=== PATIENT | female | born 1960 | race Caucasian/White ===

== ENCOUNTER 2021-04-29 09:59 | Outpatient (RCR) | payer BC, SELFPAY ==
--- NOTE | 2021-04-29 10:58 | PTOPEVAL ---
Thank you for referring Amanda Coello to [facility].? The patient is scheduled to be seen for therapy? ____x/week for ___ weeks. Please review, sign, date and return this plan of care NOEL. I agree with and certify that the following plan of care is medically necessary. Referring Physician Date Admitting Provider: Attending Provider: JEREMÍAS WINTERS Referring Provider: EMANUEL Outpatient Evaluation Start: 04/29/21 10:04 Freq: Status: Active Protocol: Document 04/29/21 10:05 ACR (Rec: 04/29/21 10:57 ACR [id number]) Therapy Assessment Status Assessment Status Assessment Status Evaluation Evaluation Information Problem Diagnosis DJD Onset 04/15/21 Subjective Information Patient states that she was Query Text:As Reported By Patient/ just on a road trip for 16 Family days. She states that when she would stop and stretch she would feel something different in the mid thoracic region. When she got home she states the pain got worse so she went to the doctor and got an X- rays which showed some arthitis. The patient states that walking is okay, but her feet bother her more than the back. Patient states that she has the most difficulty with performing daily activities without an increase of pain by the end of the day. She states that she has difficulty with steps as well. She states that since the pandemic she has been pretty sedentary and has gained weight and thinks it could have caused some of her issues. She states that she has had one episode of some pins and needles sensation down both legs after standing for 20 minutes. Prior Level of Function Activity Level (Last 3 Months) Occupation retail Hand Dominance Right Activity of Daily Living Ability Independent Indoor/Home Mobility Independent Community Mobility Independent Stairs Ability Independent Functional Cognition (Planning, Shopping Independent , Taking Medications) Cooking Yes
== END 2021-04-29 10:27 | disposition home or self-care (01) ==
LOC: CHSPT 09:59
DX: M19.90 Unspecified osteoarthritis, unspecified site (principal)
CPT/HCPCS: 97110; 97161

== ENCOUNTER 2022-09-21 13:54 | Outpatient (CLI) | payer BC, SELFPAY ==
--- NOTE | ~2022-09-21 | MM_ITS ---
EXAMINATION: MM screening octavia BI w jess HISTORY: Screening mammogram TECHNIQUE: Craniocaudal and mediolateral oblique 3-D tomosynthesis images were obtained and synthetic 2-D images were generated. CAD analysis was submitted and interpreted. COMPARISON: No prior mammogram is available for comparison at this institution. BREAST PARENCHYMAL COMPOSITION: There are scattered areas of fibroglandular density. FINDINGS: There is no evidence of suspicious mass, calcification, or architectural distortion to sugg est malignancy in either breast. There has been no suspicious interval change. IMPRESSION: 1. No mammographic evidence of malignancy. 2. Recommend routine screening mammography in one year. BI-RADS Category 1: Negative Reviewed, dictated and finalized at location A.
--- NOTE | ~2022-09-21 | DEXA_ITS ---
Bone Density Report Name: CARLOS A PIZARRO Age: 62 Sex: Female Ethnicity: White Date of : 1960 Indication: postmenopausal; screening for osteoporosis; parental hip fracture; height loss; Referring Provider: Domenic Etienne Study: Bone densitometry was performed. Exam Date: September 21, 2022 Accession number: [id number] Bone Density: Region BMD T-score Z-score Classification AP Spine(L1-L4) 0.750 -2.7 -1.0 Osteoporosis Femoral Neck (Left) 0.604 -2.2 -0.7 Osteopenia Total Hip (Left) 0.756 -1.5 -0.3 Osteopenia Femoral Neck (Right) 0.574 -2.5 -1.0 Osteoporosis Total Hip (Right) 0.721 -1.8 -0.6 Osteopenia Femoral Neck Mean 0.589 -2.3 -0.9 Osteopenia Total Hip Mean 0.738 -1.7 -0.5 Osteopenia World Health Organization criteria for BMD impression classify patients as: Normal (T-score at or above -1.0), Osteopenia (T-score between -1.0 and -2.5), or Osteoporosis (T-score at or below -2.5). 10-year Fracture Risk: FRAX not reported because: Some T-score for Spine Total or Hip Total or Femoral Neck at or below -2.5 Clinical Information Provided by Patient: Parent has had a hip fracture Has used the following medications: Vitamin D, Calcium, multivit Patient maximum height was 70 Menopause Age: 51 No regular weight bearing exercise Drinks caffeinated beverages Onset of menses at age 9 Number of children 4 Impression: The patient has osteoporosis, based on the Total Spine T-score. The patient has risk factors, including: parental hip fracture. Discussion: INCREASED RISK OF FRACTURE. BONE DENSITY IS UNDESIRABLY LOW AT ONE OR MORE SKELETAL SITES, CONSISTENT WITH POSTMENOPAUSAL OSTEOPOROSIS. This patient's lowest T-score meets the World Health Organization's (WHO) criteria for osteoporosis at one or more sites (T-score -2.5 or below). In untreated patients, the risk of osteoporotic fracture increases approximately two-fold for each 1.0 SD decrease in T-score. Low bone density is not the only risk factor for fracture; also consider factors such as patient's age, frailty or poor health, risk of falling, risk of injury, previous osteoporotic fracture, family history of osteoporosis, cigarette smoking, low body weight, etc. Not everyone with low bone mineral density has osteoporosis; osteomalacia and other metabolic bone disorders should also be considered. Patients who have osteoporosis should be evaluated for specific diseases and conditions (secondary causes) that may cause or contribute to bone loss. The [place] Association of Clinical Endocrinologists (AACE) and National Osteoporosis Foundation (NOF) recommend pharmacologic intervention for all postmenopausal women whose T-score is in this range. The patient should follow a healthful lifestyle (good nutrition with adequate calcium and vitamin D,
== END 2022-09-21 13:55 | disposition home or self-care (01) ==
LOC: CHSIMG 13:57
PROVIDERS: PCP Internal Medicine; Visit Provider Internal Medicine
DX: Z12.31 Encounter for screening mammogram for malignant neoplasm of breast (principal); Z78.0 Asymptomatic menopausal state; M85.89 Other specified disorders of bone density and structure, multiple sites; M81.0 Age-related osteoporosis without current pathological fracture
CPT/HCPCS: 77063; 77067; 77080

== ENCOUNTER 2023-04-01 10:30 | Outpatient (CLI) | payer BC, SELFPAY ==
--- NOTE | ~2023-04-01 | XR_ITS ---
EXAMINATION: XR chest 2V DATE: 04/01/2023 10:50 INDICATION: Posterior chest pain TECHNIQUE: PA and lateral views of the chest are obtained. COMPARISON: None available FINDINGS: The lungs are free of acute opacities. No pleural effusion or pneumothorax. The cardiomedia stinal silhouette is normal. There is focal kyphosis and anterior wedging of an upper thoracic verteb ral body, consistent with compression or burst fracture. There is a partially imaged sclerotic lesion of the proximal right humerus. IMPRESSION: 1. Focal kyphosis and anterior wedging of an upper thoracic vertebral body likely reflecting age-inde terminate compression or burst fracture. Consider further evaluation with CT or MRI. 2. Partially imaged sclerotic lesion of the proximal right humerus. Dedicated right shoulder radiogra phs are recommended. Reviewed, dictated and finalized at location L. IMPRESSION: 1. Focal kyphosis and anterior wedging of an upper thoracic vertebral body like ly reflecting age-indeterminate compression or burst fracture. Consider further evaluation with CT or MRI. 2. Partially imaged sclerotic lesion of the proximal right humerus. Dedicated r ight shoulder radiographs are recommended.
== END 2023-04-01 10:31 | disposition home or self-care (01) ==
LOC: CHSIMG 10:34
PROVIDERS: PCP Internal Medicine; Visit Provider Internal Medicine
DX: R07.9 Chest pain, unspecified (principal); M40.294 Other kyphosis, thoracic region
CPT/HCPCS: 71046

== ENCOUNTER 2023-04-02 09:13 | Outpatient (CLI) | payer BC, SELFPAY ==
--- NOTE | ~2023-04-02 | XR_ITS ---
Right Humerus Technique: AP and lateral views were obtained. Clinical History: Sclerotic lesion Findings: No fracture or dislocation is seen. There is a 5.0 x 3.6 cm sclerotic lesion in the proxima l humeral metaphyseal region, with irregular borders. Appearance suggests chondroid lesion. No perios teal reaction or lytic component evident. Visualized joint spaces are grossly preserved. Soft tissues are unremarkable. Impression: 5.0 x 3.6 cm proximal humeral metaphyseal lesion, suggestive of chondroid lesion, likely enchondroma. Reviewed, dictated and finalized at location M. Impression: 5.0 x 3.6 cm proximal humeral metaphyseal lesion, suggestive of chondroid lesio n, likely enchondroma.
== END 2023-04-02 09:14 | disposition home or self-care (01) ==
LOC: CHSIMG 09:16
PROVIDERS: PCP Internal Medicine; Visit Provider Internal Medicine
DX: M89.9 Disorder of bone, unspecified (principal); M75.91 Shoulder lesion, unspecified, right shoulder
CPT/HCPCS: 73060

== ENCOUNTER 2023-04-08 06:57 | Outpatient (CLI) | payer BC, SELFPAY ==
--- NOTE | ~2023-04-08 | MR_ITS ---
MRI of the thoracic spine Clinical History: Back pain Technique: Axial T2-weighted and gradient images, and sagittal T1-weighted, T2-weighted, and STIR tomi ges were acquired. Findings: There is an element of kyphoscoliosis of the thoracic spine, but no acute fracture or sublu xation seen. No focal bone marrow signal abnormality identified. There is mild disc bulge at T8-T9. No spinal canal stenosis or cord compression seen at any thoracic level. No abnormal signal seen in the spinal cord itself. Paravertebral soft tissues are unremarkable . Impression: Kyphoscoliosis. Minimal disc bulge at T8-T9. Reviewed, dictated and finalized at location M. Impression: Kyphoscoliosis. Minimal disc bulge at T8-T9.
== END 2023-04-08 06:58 | disposition home or self-care (01) ==
LOC: CHSIMG 06:58
PROVIDERS: PCP Internal Medicine; Visit Provider Internal Medicine
DX: M41.9 Scoliosis, unspecified (principal); M51.34 Other intervertebral disc degeneration, thoracic region; S22.000A Wedge compression fracture of unspecified thoracic vertebra, initial encounter for closed fracture
CPT/HCPCS: 72146

== ENCOUNTER 2023-07-08 07:05 | Outpatient (CLI) | payer MEDICARE, SELFPAY ==
--- NOTE | ~2023-07-08 | MR_ITS ---
EXAMINATION: MR humerus RT wo/w con DATE: 07/08/2023 08:16 INDICATION: Proximal right humeral chondral lesion TECHNIQUE: Magnetic resonance imaging (MRI) of the right humerus was performed without intravenous co ntrast. A marker was placed over the mass. Sequences included axial, sagittal and coronal T1-weighte d FSE and fluid sensitive FSE STIR, axial T1-weighted FS FSE and postcontrast axial, sagittal and cor onal T1-weighted FS FSE. COMPARISON: Right humeral radiographs dated 04/02/2023 FINDINGS: Region of low signal in the proximal metaphyseal region of the right humerus corresponding to the rin g and arc-like sclerotic chondroid matrix evident on the prior radiographs. At the periphery of the r egion of sclerosis and a few small globular regions of increased T2 signal with thin peripheral rim o f enhancement is also typical of enchondroma. No evident cortical disruption on the prior radiographs were enhancing extraosseous component of the lesion on the current MRI to suggest an aggressive ench ondroma or pneumonia transformation. No other abnormal bone lesions identified. There is moderate ost eoarthritis at the right acromioclavicular joint. Right glenohumeral joint space appears relatively p reserved with no joint effusion. No pathologically enlarged right axillary lymphadenopathy. The muscu lature and neurovascular structures in the visualized right upper arm are unremarkable. IMPRESSION: 1. Large enchondroma in the proximal metaphyseal region of the right humerus. Reviewed, dictated and finalized at location A. RITY GUARD SUPERVISOR
== END 2023-07-08 07:06 | disposition home or self-care (01) ==
PROVIDERS: PCP Internal Medicine; Visit Provider Internal Medicine
DX: D16.01 Benign neoplasm of scapula and long bones of right upper limb (principal)
CPT/HCPCS: 73220; A9577

== ENCOUNTER 2024-01-31 10:24 | Outpatient (RCR) | payer MEDICARE, SELFPAY ==
--- NOTE | 2024-01-31 11:28 | PTOPEVAL1 ---
Assessment and note entered by Everardo Tomas Evaluation Information Assessment Status Evaluation Diagnosis posterior tibial tendon dysfunction M67.969 Onset 07/12/23 Subjective Information Pt. reports she originally injured the left foot in July. She reports she was walking up an incline and noticed a gradual onset of pain that began to worsen. She reports she went to the doctor in October and was but in a boot on 11/30/23. She states that she has been told that she can start to use a brace instead of her boot, but continues to use the boot if she is having pain. She reports that she spends about 50% of the day in her boot and 50% in the brace. She reports that pain is still present. She continues to describe pain on the inside of the left foot. She is wearing an orthotic in her shoe. She states that she has frequent ankle sprains. She reports she enjoys walking for exercise, but has not been able to walk for exercise since being in her boot. She has a pool, but has been getting into her pool with use of a brace. She reports that her goal for therapy is to decrease her pain and walk without her boot by April 06, as she prepares for a trip to [facility]. Reported Pain Level Pain Score 5: Self Report Assessment PT Clinical Summary Pt. is a 63 year old female who enters the clinic due to posterior tibialis dysfunction. She presents with functional decline, impaired gait, weakness, pain and impaired left ankle ROM. Continued skilled PT is indicated in order to improve these areas to allow the pt. to be able to return to normal gait without a boot. Plan of Care Interventions Electrical Stimulation,Gait Training,Hot Pack/Cold Pack,Manual Therapy,Neuro Re-education,Patient/ Caregiver Educati,Therapeutic Activities, Therapeutic Exercise,Ultrasound Other Interventions iontophoresis PT Services Indicated Yes Treatment Frequency and 2x/week x 10 visits Duration These treatments will address the objective and functional deficits as defined above. The patient will be advanced safely and appropriately in order for the patient to progress towards his/her prior level of function. Additional exercises will be introduced and as well as a comprehensive home exercise program upon discharge, if needed, ?to ensure carryover of functional gains achieved in the clinic. This treatment plan has been reviewed and agreement upon by the patient.
--- NOTE | 2024-03-03 10:22 | OPREHPOC ---
Outpatient Therapy Plan of Care This is a Multidisciplinary Plan of Care that may contain components documented by all disciplines (PT, OT, and ST.) PT Problem 1 PT Problem #1 Knowledge Deficit PT Goal 1 Goal / Goal Update Pt. will be independent with a HEP addressing flexibility and intrinsic strength Target Visit 2 Progress Met PT Problem 2 PT Problem #2 Pain PT Goal 1 Goal / Goal Update Pt. will report pain reduction to 1/10 at worst with standing activities in regular footwear. Target Visit 16 Progress Not Met PT Problem 3 PT Problem #3 Impaired Range of Motion PT Goal 1 Goal / Goal Update Pt. will achieve 10-15 degrees of active left ankle dorsiflexion ROM Target Visit 10 Progress Met PT Problem 4 PT Problem #4 Impaired Strength PT Goal 1 Goal / Goal Update Pt. will be able to complete 10-15 single limb heel raises on the left with 1/10 pain at worst. Improve bilateral hip abduction strength to 4/5 or better Target Visit 16 Progress Not Met PT Problem 5 PT Problem #5 Impaired Functional Mobil PT Goal 1 Goal / Goal Update Pt. will discontinue use of the walking boot. met Pt. will ambulate over level surface with equal right and left stance time Pt. will present with less than 20% limitation on the LEFS. not met Target Visit 16 Progress Partially Met
--- NOTE | 2024-03-03 10:22 | PTOPREEVAL ---
Assessment and note entered by JT File, PT Evaluation Information Assessment Status Re-evaluation Diagnosis posterior tibial tendon dysfunction M67.969 Onset 07/12/23 Subjective Information patient reports she has improved since her time in skilled PT. however, she reports she continues to have weakness in the R ankle, and difficulty tolerating prolonged ambulation. she reports she is leaving for [facility] at the end of next month, and would like to continue therapy to further improve her strength and stability of the L ankle prior to her trip. Reported Pain Level Pain Score 1: Self Report Assessment PT Clinical Summary mrs. weldon presents to skilled PT services for her 10th skilled PT visit. today, she displays improved rom of the L ankle, achievement of HEP goal, and progress towards ambulation and LEFS goals. she continues to display weakness in the L ankle, and inability to tolerate prolonged walking . she would benefit from continued skilled PT to address her remaining deficits and new discovered hip weakness to improve her quality of life and functional activity performance. Plan of Care Interventions Electrical Stimulation,Gait Training,Hot Pack/Cold Pack,Manual Therapy,Neuro Re-education,Patient/ Caregiver Educati,Therapeutic Activities, Therapeutic Exercise,Ultrasound Other Interventions iontophoresis PT Services Indicated Yes Treatment Frequency and continue skilled PT 2x weekly for 6 more visits Duration These treatments will address the objective and functional deficits as defined above. The patient will be advanced safely and appropriately in order for the patient to progress towards his/her prior level of function. Additional exercises will be introduced and as well as a comprehensive home exercise program upon discharge, if needed, ?to ensure carryover of functional gains achieved in the clinic. This treatment plan has been reviewed and agreement upon by the patient.
--- NOTE | 2024-03-07 08:05 | PCPTNOTE ---
patient cancelled due to being in a boot for 1 month and then going out of town
== END 2024-04-30 23:59 | disposition home or self-care (01) ==
LOC: CHSPT 10:24
DX: M67.972 Unspecified disorder of synovium and tendon, left ankle and foot (principal)
CPT/HCPCS: 97110; 97112; 97140; 97161

== ENCOUNTER 2024-09-21 11:00 | Outpatient (RCR) | payer MEDICARE, SELFPAY ==
--- NOTE | 2024-09-21 12:01 | OPREHPOC ---
Outpatient Therapy Plan of Care This is a Multidisciplinary Plan of Care that may contain components documented by all disciplines (PT, OT, and ST.) PT Problem 1 PT Problem #1 Knowledge Deficit PT Goal 1 Goal / Goal Update Independent with HEP. Target Visit 4 PT Problem 2 PT Problem #2 Pain PT Goal 1 Goal / Goal Update Pt to report 0/10 pain at rest. Pt to report no more than 3/10 pain with thoracic rotation or extension. Target Visit 12 PT Problem 3 PT Problem #3 Impaired Strength PT Goal 1 Goal / Goal Update Pt to improve cervical muscle strength to 5/5 grossly without pain. Target Visit 12 PT Problem 4 PT Problem #4 Impaired Functional Mobility PT Goal 1 Goal / Goal Update Pt to report no more than 10% disability on back index. Pt to be able to roll side to side in bed without thoracic back pain. Target Visit 12
--- NOTE | 2024-09-21 12:01 | PTOPEVAL1 ---
Assessment and note entered by Martina Art, PT Evaluation Information Assessment Status Evaluation ICD-10 Condition Codes (PT) Pain in Thoracic Spine M54.6 Onset 09/12/24 Subjective Information Pt reports onset of back pain between her shoulder blades on the left side. She reports recently going on vacation and driving back from [place] as well as doing taxes for a long time. She thinks this prolonged sitting has caused her pain. She does note occasional tingling down the arm as well as an aching pain into the neck and head. She states she got a steroid shot and another shot for pain as well as muscle relaxants but overall she notes only mild benefit. She sleeps on her back as well as her sides, and she notes rolling over in bed is painful. Any kind of twisting motion or extension also aggravates pain. Overall she's not limited in any functional tasks but her pain is present and she pushes through it. Reported Pain Level Pain Score 4: Self Report Assessment PT Clinical Summary Mrs. Coello is a 64 yo female presenting to physical therapy for thoracic pain that is aggravated with rotation and extension. She also notes neck pain that occurs with rotation and lateral flexion. She demonstrates mild weakness of the cervical musculature as well as stiffness in the thoracic spine and postural deviations causing forward head, rounded shoulders and scapular protraction. She will benefit from skilled PT intervention to improve on these deficits and return to normal activities with less pain. Plan of Care Interventions Electrical Stimulation,Gait Training,Hot Pack/Cold Pack,Manual Therapy,Mechanical Traction,Neuro Re- education,Patient/Caregiver Education,Therapeutic Activities,Therapeutic Exercise,Self-Care/Home Management PT Services Indicated Yes Treatment Frequency and 2x/week for 12 visits Duration These treatments will address the objective and functional deficits as defined above. The patient will be advanced safely and appropriately in order for the patient to progress towards his/her prior level of function. Additional exercises will be introduced and as well as a comprehensive home exercise program upon discharge, if needed, ?to ensure carryover of functional gains achieved in the clinic. This treatment plan has been reviewed and agreement upon by the patient.
--- NOTE | 2024-11-02 11:24 | OPREHPOC ---
Outpatient Therapy Plan of Care This is a Multidisciplinary Plan of Care that may contain components documented by all disciplines (PT, OT, and ST.) PT Problem 1 PT Problem #1 Knowledge Deficit PT Goal 1 Goal / Goal Update Independent with HEP. Target Visit 4 Progress Met PT Problem 2 PT Problem #2 Pain PT Goal 1 Goal / Goal Update Pt to report 0/10 pain at rest. -met Pt to report no more than 3/10 pain with thoracic rotation or extension. -not met Target Visit 12 Progress Partially Met PT Problem 3 PT Problem #3 Impaired Strength PT Goal 1 Goal / Goal Update Pt to improve cervical muscle strength to 5/5 grossly without pain. Target Visit 12 Progress Partially Met PT Problem 4 PT Problem #4 Impaired Functional Mobility PT Goal 1 Goal / Goal Update Pt to report no more than 10% disability on back index. -not met Pt to be able to roll side to side in bed without thoracic back pain. -met Target Visit 12 Progress Partially Met
--- NOTE | 2024-11-02 11:24 | PTOPPROG ---
Assessment and note entered by Martina Art, PT Evaluation Information Assessment Status Progress ICD-10 Condition Codes (PT) Pain in Thoracic Spine M54.6 Onset 09/12/24 Subjective Information Amanda reports her pain has improved significantly since beginning therapy. Her pain in negligible at rest and increases to 4/10 with prolonged sitting and lifting heavy objects. She feels like her neck and arm strength have improved since beginning therapy and is happy with her progress. Assessment PT Clinical Summary Mrs. Coello has attended 10 total skilled PT visits addressing neck and upper back pain. Since beginning therapy her pain has significantly decreased and her neck strength has also improved. She does still experience moderate pain levels with prolonged sitting and lifting heavy objects as well as some slight left sided neck muscle weakness. She will benefit from continued skilled PT to improve on these deficits to be able to perform daily functional activities with less pain . Plan of Care Interventions Electrical Stimulation,Intermittent Compression Pump,Manual Therapy,Neuro Re-education,Patient/ Caregiver Education,Therapeutic Activities, Therapeutic Exercise,Self-Care/Home Management PT Services Indicated Yes Treatment Frequency and Continue per original POC Duration These treatments will address the objective and functional deficits as defined above. The patient will be advanced safely and appropriately in order for the patient to progress towards his/her prior level of function. Additional exercises will be introduced and as well as a comprehensive home exercise program upon discharge, if needed, ?to ensure carryover of functional gains achieved in the clinic. This treatment plan has been reviewed and agreement upon by the patient.
--- NOTE | 2024-11-08 10:00 | OPREHPOC ---
Outpatient Therapy Plan of Care This is a Multidisciplinary Plan of Care that may contain components documented by all disciplines (PT, OT, and ST.) PT Problem 1 PT Problem #1 Knowledge Deficit PT Goal 1 Goal / Goal Update Independent with HEP. Target Visit 4 Progress Met PT Problem 2 PT Problem #2 Pain PT Goal 1 Goal / Goal Update Pt to report 0/10 pain at rest. -met Pt to report no more than 3/10 pain with thoracic rotation or extension. -met Target Visit 12 Progress Met PT Problem 3 PT Problem #3 Impaired Strength PT Goal 1 Goal / Goal Update Pt to improve cervical muscle strength to 5/5 grossly without pain. Target Visit 12 Progress Met PT Problem 4 PT Problem #4 Impaired Functional Mobility PT Goal 1 Goal / Goal Update Pt to report no more than 10% disability on back index. -not met Pt to be able to roll side to side in bed without thoracic back pain. -met Target Visit 12 Progress Partially Met
--- NOTE | 2024-11-08 10:00 | PTOPDC ---
Assessment and note entered by Martina Art, PT Evaluation Information Assessment Status Discharge ICD-10 Condition Codes (PT) Pain in Thoracic Spine M54.6 Onset 09/12/24 Subjective Information Amanda reports her pain has improved significantly since beginning therapy. Her pain in negligible at rest and increases only slightly with prolonged sitting and lifting objects. She feels like her neck and arm strength have improved since beginning therapy and is happy with her progress. She knows when she over does it regarding her recreational and functional activities and knows the proper techniques to manage her pain on her own. Reported Pain Level Pain Score 0: Self Report Assessment PT Clinical Summary Mrs. Coello has attended 12 total skilled PT visits addressing mid back pain. Since beginning therapy her back pain has improved significantly, is now negligible at rest and only increases with prolonged sitting. She has also made improvements in her cervical muscle strength and postural awareness, along with independence with her HEP that have allowed her to manage her pain effectively. She has met or partially met all therapeutic goals set for her and is appropriate for discharge from skilled PT services this date. Plan of Care PT Services Indicated No
== END 2024-11-08 16:39 | disposition home or self-care (01) ==
LOC: CHSPT 11:00
PROVIDERS: PCP Nurse Practitioner Family; Visit Provider Nurse Practitioner Family
DX: M54.6 Pain in thoracic spine (principal)
CPT/HCPCS: 97014; 97110; 97112; 97140; 97161; G0283

== ENCOUNTER 2024-09-22 12:53 | Outpatient (CLI) | payer MEDICARE, SELFPAY ==
--- NOTE | ~2024-09-22 | XR_ITS ---
XR_[id number]_CR Ordering provider: Ayde Muñoz, CUE WORKER History: . neck pain RADIATES DOWN LT ARM,ACUTE X1WK,NKI . Comparison: None. FINDINGS: VERTEBRAL BODIES: Normal height and alignment. No visible fracture or subluxation. The dens is intact . DISK SPACES: Narrowing of the disc C6-C7. Multilevel facet joint disease. Multilevel uncovertebral joint osteoarthritic changes. PARASPINOUS SOFT TISSUES: No prevertebral soft tissue swelling. IMPRESSION: No acute osseous abnormality cervical spine. Degenerative disc disease at the level of C6-C7. Reviewed, dictated and finalized at location A.
--- NOTE | ~2024-09-22 | MM_ITS ---
EXAMINATION: MM screening octavia BI w jess HISTORY: Screening mammogram TECHNIQUE: Craniocaudal and mediolateral oblique 3-D tomosynthesis images were obtained and synthetic 2-D images were generated. CAD analysis was submitted and interpreted. COMPARISON: 09/21/2022 BREAST PARENCHYMAL COMPOSITION:Not Dense. There are scattered areas of fibroglandular density. FINDINGS: No suspicious mass, calcification, or architectural distortion are identified in either naz ast to suggest malignancy. There has been no suspicious interval change. IMPRESSION: No mammographic evidence of malignancy. Recommend routine screening mammography in one year. BI-RADS Category 1: Negative Reviewed, dictated and finalized at location .
--- NOTE | ~2024-09-22 | DEXA_ITS ---
Bone Density Report Name: CARLOS A PIZARRO Age: 64 Sex: Female Ethnicity: White Date of : 1960 Indication: postmenopausal osteoporosis; monitoring treatment; parental hip fracture; height loss; rheumatoid arthritis; Referring Provider: RAKELPHILIP Study: Bone densitometry was performed. Exam Date: September 22, 2024 Accession number: [id number] Bone Density: Region BMD T-score Z-score Classification AP Spine(L2, L3, L4) 0.831 -2.3 -0.3 Osteopenia Femoral Neck (Left) 0.604 -2.2 -0.6 Osteopenia Total Hip (Left) 0.802 -1.1 0.2 Osteopenia Femoral Neck (Right) 0.527 -2.9 -1.3 Osteoporosis Total Hip (Right) 0.751 -1.6 -0.3 Osteopenia Femoral Neck Mean 0.566 -2.6 -1.0 Osteoporosis Total Hip Mean 0.777 -1.4 -0.1 Osteopenia World Health Organization criteria for BMD impression classify patients as: Normal (T-score at or above -1.0), Osteopenia (T-score between -1.0 and -2.5), or Osteoporosis (T-score at or below -2.5). 10-year Fracture Risk: FRAX not reported because: Some T-score for Spine Total or Hip Total or Femoral Neck at or below -2.5 Treated for osteoporosis Previous Exams: Region Exam Age BMD T-score BMD Change BMD Change Date g/cm2 vs Baseline vs Previous AP Spine (L2-L4) 09/22/2024 64 0.831 -2.3 0.044 (5.6%)# 0.044 (5.6%)# 09/21/2022 62 0.787 -2.7 Total Hip(Left) 09/22/2024 64 0.802 -1.1 0.047 (6.2%)# 0.047 (6.2%)# 09/21/2022 62 0.756 -1.5 Total Hip(Right) 09/22/2024 64 0.751 -1.6 0.030 (4.1%)# 0.030 (4.1%)# 09/21/2022 62 0.721 -1.8 *Denotes significance at 95% confidence level, LSC for AP Spine = 0.022 g/cm2, LSC for Total Hip = 0.027 g/cm2 # Denotes dissimilar scan types or analysis methods Clinical Information Provided by Patient: Parent has had a hip fracture Has rheumatoid arthritis Is being treated for osteoporosis Has used the following medications: Fosamax (i.e. alendronate), Vitamin D Patient maximum height was 70 Menopause Age: 51 No regular weight bearing exercise Drinks caffeinated beverages Onset of menses at age 9 Number of children 4 Impression: The patient has osteoporosis, based on the Right Femoral Neck T-score. The patient has risk factors, including: parental hip fracture. No significant bone loss was observed. Discussion: PATIENT UNDER TREATMENT WITH NO SIGNIFICANT BMD LOSS SINCE LAST EXAM. In an untreated patient, BMD typically declines with age. A lack of decline or gain is usually a sign that treatment is efficacious and fracture risk is reduced. It is important to ask patients whether they are taking their medications and to encourage continued and appropriate compliance with their osteoporosis therapies to reduce fracture risk. It is also important to review their risk factors and encourage appropriate calcium and vitamin D intakes, exercise, fall prevention and other lifestyle measures. Follow-Up: Consider a repeat BMD and Vertebral Fracture Assessment (VFA) exam in 2 years or sooner if medically necessary, to reassess this patient's status. Reported by: MARJAN on 09/22/2024 1:26:00 PM. Reviewed, dictated and finalized at location A.
--- OUTSIDE RECORDS SUMMARY | 2024-09-22 12:59 | XMS_ITS | Patient Health Record ---
Author Organization [facility] Address [address] [place], [place] [id number] Care Team Providers Care Bindery Helper Name Role Phone Domenic Etienne Unavailable Unavailable ANDRY NUNEZ Unavailable [phone] Allergies Allergen (clinical drug ingredient) Drug/Non Drug Allergy documented on EMR Reaction Allergy Type Onset Date Status ethan (uncoded) Unknown Allergy Acti ve Substance with sulfonamide structure and antibacterial mechanism of action (substance) Sulfa Antibiotics Unknown Drug Allergy Active Reason For Referral No Information Medications Medication SIG (Take, Route, Frequency, Duration) Notes Start Date End Date Status Naproxen 375 MG 1 tablet with food o r milk as needed Orally every 12 hrs Active Torsemide 20 MG as directed Orally Active Losartan Potassium 25 MG 1 tablet Orally Once a day Active Vital Signs Height-cm 170.18 cm 09/30/2023 Weight-kg 88 kg 09/30/2023 Height 67 in 09/30/2023 Weight 194 lbs 09/30/2023 BMI 30.38 kg/m2 09/30/2023 Encounters Encounter Location Date Provider Diagnosis [facility] [address] [place], [place] [id number] 09/30/2023 ANDRY NUNEZ Flat foot [pes planus] (acquired), right foot M21.41 ; Pain in right ankle and joints of right foot M25.571 ; Posterior tibial tendinitis, right leg M76.821 ; Localized edema R60.0 and Tinea unguium B35.1 Assessments Encounter Date Diagnosis (ICD Code) Assessment Notes Treatment Notes Treatment Clinical Notes Section Notes 09/30/2023 Flat foot [pes planus] (acquired), right foot (ICD-10 - M21.41) Patient educated on etiology and treatment options for flexible flat foot deformity. Educated patient on how a flexible flat foot deformity can in turn result in pathology such as hammer toe, bunions, equinus, neuromas. Recommend use of custom foot inserts to help alleviate plantar peak pressures and accomodate for digital deformity to feet. 09/30/2023 Pain in right ankle and joints of right foot (ICD-10 - M25.571) 09/30/2023 Posterior tibial tendinitis, right leg (ICD-10 - M76.821) Posterior Tibialis Tendon Dysfunction: I discussed anti-inflammatory treatment options and various means of immobilization with the patient. I educated the patient on icing and stretching, supportive shoegear, and the use of orthotic devices and bracing. A trilok ankle brace was dispensed for the pateint's right and the patient was instructed on it's use. 09/30/2023 Localized edema (ICD-10 - R60.0) 09/30/2023 Tinea unguium (ICD-10 - B35.1) The patient was educated regarding all treatment options that include topical and oral antifungal treatments. I discussed the options of taking a sample of the nail to confirm diagnosis. Nail clippings were not sent for pathology analysis. The patient was educated why and how the fungal infection evolved in their feet and the patient was given information regarding how to prevent further infection. The patient was told to keep feet dry and change socks. The patient was told to be careful with old shoes and excessive sweating. The patient was educated regarding both OTC and prescription treatments. Rx ciclopirox. Plan Of Treatment No Information Insurance Providers Payer Name Payer Address Payer Phone Subscriber Number Group Number Insured Name Patient Relationship to Insured Coverage Start Date Coverage End Date Medicare Part B [place] [address] [place] [address] [id number] Amanda Coello Self - patient is the insured [facility] [address] [place] [address] [id number] Amanda Coello Self - patient is the insured [facility] [address] [place], [place] [phone] [id number] Amanda Coello Self - patient is the insured Medical (General) History Medical History History ICD Code Arthritis Sleep apnea Back Trouble hypertension
--- OUTSIDE RECORDS SUMMARY | 2024-09-22 12:59 | XMS_ITS ---
Author Organization [facility] Address [address] [place], [place] [id number] Care Team Providers Care Referral Rn Name Role Phone Domenic Etienne Unavailable Unavailable ANDRY NUNEZ Unavailable [phone] REASON FOR VISIT CHECK Encounters Encounter Location Date Provider Diagnosis [address] [phone] 10/14/2023 ANDRY NUNEZ Plan Of Treatment No Information Progress Notes * Amanda PIZARRODOB:1960 (64 yo F)Acc No.[id number]:10/14/2023 Patient: Domonique GARCIAita Provider: Kiana NUNEZ :1960 A ge:63 Y S ex:Female Date:10/14/2023 Address:[address] [place] [id number] Subjective: * Chief Complaints: * 1 . CHECK. * Medical History: Objective: * Vitals: Assessment: Plan: * Treatment: * Billing Information: * Visit Code: * Procedure Codes: * Electronic signature of MAXIMUS NUNEZ DPM on 09/22/2024 at 12:59 PM CDT Sign off status: Pending * Provider: Kiana NUNEZ Date: 0 10/14/2023 Generated for Erica smith/Mary/eTransmitting on: 0 09/22/2024 12:59 PM CDT
--- OUTSIDE RECORDS SUMMARY | 2024-09-22 12:59 | XMS_ITS ---
Author Organization [facility] Address [address] [place], [place] [phone] Care Team Providers Care Prosthetics Assistant Name Role Phone Domenic Etienne Unavailable Unavailable ANDRY NUNEZ Unavailable [phone] Allergies Allergen (clinical drug ingredient) Drug/Non Drug Allergy documented on EMR Reaction Allergy Type Onset Date Status ethan (uncoded) Unknown Allergy Acti ve Substance with sulfonamide structure and antibacterial mechanism of action (substance) Sulfa Antibiotics Unknown Drug Allergy Active REASON FOR VISIT F ft flat feet, pain walking Medications Medication SIG (Take, Route, Frequency, Duration) Notes Start Date End Date Status Ciclopirox 8 % 1 application [employer] Of [employer] ally Once a day for 30 days 09/30/2023 12/29/2023 Active Naproxen 375 MG 1 tablet with food o r milk as needed Orally every 12 hrs Active Torsemide 20 MG as directed Orally Active Losartan Potassium 25 MG 1 tablet Orally Once a day Active Vital Signs Height 67 in 09/30/2023 Weight 194 lbs 09/30/2023 BMI 30.38 kg/m2 09/30/2023 Height-cm 170.18 cm 09/30/2023 Weight-kg 88 kg 09/30/2023 Encounters Encounter Location Date Provider Diagnosis [facility] [address] [place], [place] [phone] 09/30/2023 ANDRY NUNEZ Flat foot [pes planus] [...] prescription treatments. Rx ciclopirox. Plan Of Treatment Medication Medication Name Sig Start Date Stop Date Notes Ciclopirox 8 % 1 application [employer] ally Once a day for 30 days 09/30/2023 12/29/2023 Treatment Notes Assessment Notes Flat foot [pes planus] (acqu ired), right foot Patient educated on etiology and treatme nt options for flexible flat foot deformity. Educated patient on how a flexible flat foot deformity can in turn result in pathology such as hammer toe, bunions, equinus, neuromas. Recommend use of custom foot inserts to help alleviate plantar peak pressures and accomodate for digital deformity to feet. Posterior tibial tendinitis, right leg Posterior Tibialis Tendon Dysfunction: I discussed anti-inflammatory treatment options and various means of immobilization with the patient. I educated the patient on icing and stretching, supportive shoegear, and the use of orthotic devices and bracing. A trilok ankle brace was dispensed for the pateint's right and the patient was instructed on it's use. Tinea unguium The patient was educ ated regarding all treatment options that include topical [...] both OTC and prescription treatments. Rx ciclopirox. Next Appt Details Follow Up: 3 Months, Reason: Progress Notes * Amanda PIZARRODOB:1960 (63 yo F)Acc No.[id number]:09/30/2023 Progress Notes Patient: Amanda GARCIA Provider: Kiana NUNEZ :1960 A ge:63 Y S ex:Female Date:09/30/2023 Address:[address] [place], [place] [phone] Subjective: * Chief Complaints: * 1 . F ft flat feet, pain walking. * HPI: H PI: New Complaint P atient presents for a new patient consultation. P atient complains of flat feet. Pt states it is starting cause pain up the back of her calfs. Pt states she wears inserts but going bare foot is very painful. D uration of problem is years. M A: As. * ROS: G eneral / Constitutional: Patient denies w eakness. R espiratory: Patient denies c hronic cough, shortness of breath, sputum production. C ardiovascular: Patient denies c hest pain, history of MA, irregular heartbeat. M usculoskeletal: Patient complains of f lat feet/ planus, arch pain, joint pain. P eripheral Vascular: Patient denies b lanching of skin, cold extremities, decreased sensation in extremities. S kin: Patient complains of f ungal nails, nail changes. ? N eurologic: Patient denies d izziness, gait abnormality, headache. * Medical History: A rthritis, Sleep apnea, Back Trouble, Hypertension. * Medications: T aking Naproxen 375 MG Tablet 1 tablet with food or milk as needed Orally every 12 hrs , Taking Torsemide 20 MG Tablet as directed Orally , Taking Losartan Potassium 25 MG Tablet 1 tablet Orally Once a day * Allergies: S ulfa Antibiotics, ethan. Objective: * Vitals: S hoe Size: 9.5, Wt:194lbs, Wt-k kg, Ht: 67 in, Ht-cm: 170.18 cm, BMI:30.38Index, Body Surface Area: 2.04. Assessment: * Assessment: 1. F lat foot [pes planus] (acquired), right foot - M21.41 (Primary) 2 . P ain in right ankle and joints of right foot - M25.571 3 . P osterior tibial tendinitis, right leg - M76.821 4 . L ocalized edema - R60.0 5 . T inea unguium - B35.1 Plan: * Treatment: 2. P osterior tibial tendinitis, right leg Notes: Posterior Tibialis Tendon Dysfunction: I discussed anti-inflammatory treatment options and various means of immobilization with the patient. I educated the patient on icing and stretching, supportive shoegear, and the use of orthotic devices and bracing. A trilok ankle brace was dispensed for the pateint's right and the patient was instructed on it's use. 3. T inea unguium Notes: The patient was educated regarding all treatment [...] both OTC and prescription treatments. Rx ciclopirox. 4. O thers Start Ciclopirox Solution, 8 %, 1 application, Externally, Once a day, 30 days, 1, Refills 2. ? * Procedure Codes: L 1902 AFO ANK GAUNTLT PREFAB W/FIT&ADJ, Modifiers: RT * Follow Up: 3 Months * Billing Information: * Visit Code: 50182 Office Visit, New Pt., Level 4. * Procedure Codes: L1902 AFO ANK GAUNTLT PREFAB W/FIT&ADJ. Modifiers: RT * Sign off status: Completed true * Provider: Kiana NUNEZ Date: 0 09/30/2023 Generated for Erica smith/Mary/Sherry on: 0 09/22/2024 12:59 PM CDT History and Physical Notes * HPI (History of Present Illness) Category Sub-Category Detail Notes Category Not es HPI New Complaint Patient presents for a new patient consultation.Patient complains of flat feet. Pt states it is starting cause pain up the back of her calfs. Pt states she wears inserts but going bare foot is very painful.Duration of problem is years.MA: As
--- OUTSIDE RECORDS SUMMARY | 2024-09-22 13:00 | XMS_ITS | Data Portability ---
Author Organization [facility], [address] Neurology ([place]) Address [address] [place] [address] Care Team Providers Care Maintenance Technician Name Role Phone GHISLAINE WHITTEN Primary Care Provider Assessment No assessment recorded. Plan of Treatment Reminders Order Date Submit Date Provider Last Modified By Organization Details Last Modified Time Details Appointments None record ed. Lab None record ed. Referral None record ed. Procedures None record ed. Surgeries None record ed. Imaging None record ed. Medication Orders None record ed. Patient TargetsNo targets recorded. Patient InstructionsNo instructions recorded. Reason for Referral None Reported. Results Created Date Observation Date Name Description Value Unit Range Abnormal Flag Note LastModifiedBy Organization Detail LastModifiedTime 05/17/20 24 05/16/2024 MRI, ankle , w/o contr ast [place] [address] [address] Teleph one [phone] Name: Amanda Coello [id number] Exam Date: 2023 Age: 64 Physic ciarra: Pati DPM, Jaja : 1959 Examin ation: MRI ANKLE WO LEFT EXAM: MRI left ankle and foot withou t contra st HISTOR Y: Concer n for redeye gunner ior tibial is tendon tear and reinju ry during physic al therap y. COMPAR TAYLOR: 11/10/19 24. TECHNI QUE: T1, invers ion recove ry and T2 fat-sa turate d multip lanar MR images of the left ankle and foot were perfor med withou t contra st. FINDIN GS: The ankle and subtal ar joint effusi ons have improv ed since compar taylor exam. There are chroni c comple te tears of the anteri or talofi bular, calcan eofibu lar and redeye gunner ior talofi bular ligame nts. There is a chroni c partia l tear of the deep fibers of the deltoi d ligame nt. There is a persis tent large osseou s fragme nt seen in the chrissy latera l gutter on T1 axial image 16. There is a stable partia l inters titial tear involv ing the distal redeye gunner ior tibial is tendon on T2 axial image 23. There is a modera te amount of fluid within the flexor tendon sheath s. There is a small amount of fluid within the perone al tendon sheath s. The extens or, perone al and Achill es tendon s are intact . The flexor digito rum longus and halluc is tendon s are intact . There is an os trigon um. The spring and Lisfra nc ligame nts are intact . There is persis tent synovi tis in the tarsal sinus. There is improv ing marrow edema seen within the latera l proces s of the talus. There is modera te to severe osteoa rthrit is, worse in the tibiot alar and first metata rsopha langea l joints . There are second and third hammer toe deform ities. There are small to modera te-siz ed metata rsopha langea l joint effusi ons. There are degene rative cysts seen within the talus, latera l proces s of the talus, and first MTP joint. No fractu re identi fied. The planta r fascia is intact . There are small degene rative calcan eal enthes ophyte s. IMPRES SHANKAR: 1. Improv ing ankle and subtal ar joint effusi ons. 2. Improv ing marrow edema in the latera l proces s of the talus. 3. Stable partia l intras ubstan ce tear, distal redeye gunner ior tibial is tendon . 4. Stable flexor and perone al tenosy noviti s. 5. Chroni c tears of multip le ankle ligame nts. 6. Osteoa rthrit is. 7. No new ligame nt or tendon tear. Electr onical ly signed in Schulz cribe by: EDWIN TAYLOR MD on:05/17/2024 8:21 AM cc: Page PAGE 1 of [facility] 1 [id number] [facility] Only - S c Radiology [address] [place], [address], 05/18/2024 13:53:37 05/17/20 24 05/16/2024 MRI, foot, w/o contr ast [facility] [address] [place] [address] Teleph one Name: Amanda Coello [id number] Exam Date: 2023 Age: 64 Physic ciarra: AYO Krueger, Jaja : 1959 Examin ation: MRI FOOT WO LEFT EXAM: MRI left ankle and foot withou t contra st HISTOR Y: Concer n for redeye gunner ior tibial is tendon tear and reinju ry during physic al therap y. COMPAR TAYLOR: 11/10/19 24. TECHNI QUE: T1, invers ion recove ry and T2 fat-sa turate d multip lanar MR images of the left ankle and foot were perfor med withou t contra st. FINDIN GS: The ankle and subtal ar joint effusi ons have improv ed since compar taylor exam. There are chroni c comple te tears of the anteri or talofi bular, calcan eofibu lar and redeye gunner ior talofi bular ligame nts. There is a chroni c partia l tear of the deep fibers of the deltoi d ligame nt. There is a persis tent large osseou s fragme nt seen in the chrissy latera l gutter on T1 axial image 16. There is a stable partia l inters titial tear involv ing the distal redeye gunner ior tibial is tendon on T2 axial image 23. There is a modera te amount of fluid within the flexor tendon sheath s. There is a small amount of fluid within the perone al tendon sheath s. The extens or, perone al and Achill es tendon s are intact . The flexor digito rum longus and halluc is tendon s are intact . There is an os trigon um. The spring and Lisfra nc ligame nts are intact . There is persis tent synovi tis in the tarsal sinus. There is improv ing marrow edema seen within the latera l proces s of the talus. There is modera te to severe osteoa rthrit is, worse in the tibiot alar and first metata rsopha langea l joints . There are second and third hammer toe deform ities. There are small to modera te-siz ed metata rsopha langea l joint effusi ons. There are degene rative cysts seen within the talus, latera l proces s of the talus, and first MTP joint. No fractu re identi fied. The planta r fascia is intact . There are small degene rative calcan eal enthes ophyte s. IMPRES SHANKAR: 1. Improv ing ankle and subtal ar joint effusi ons. 2. Improv ing marrow edema in the latera l proces s of the talus. 3. Stable partia l intras ubstan ce tear, distal redeye gunner ior tibial is tendon . 4. Stable flexor and perone al tenosy noviti s. 5. Chroni c tears of multip le ankle ligame nts. 6. Osteoa rthrit is. 7. No new ligame nt or tendon tear. Electr onical ly signed in Ray cri by: EDWIN TAYLOR MD on:05/17/2024 8:22 AM cc: Page PAGE 1 of [facility] 1 [id number] Ak Only - S c Radiology [address] [place] [address], [address], 05/18/2024 13:53:37 Result Notes None recorded. Problems Name Problem SNOMED Code Status Onset Date Resolution Date Notes Provider Name and Address Organization Details Recorded Time Nontraumati c rupture of tibialis posterior tendon 493412274 Active 2023 Jaja Krueger DPM [address] [place] [address], [phone], [employer] 4 13:26:30 Left peroneal tendon rupture 6307982716999 9108 Active 2023 Jaja Krueger DPM [address] [place] [address], [address], [employer] 4 16:58:43 Dysfunction of posterior tibial tendon 5925852251190 05 Active 2023 Ella Lugo [facility] 4 12:57:08 Degenerativ e joint disease of ankle AND/OR foot 21119033 Active 2023 Jaja Krueger, DPM [address] [place] [address], [phone] [place] [address] 4 13:23:27 Problem Notes None recorded. Procedures Surgical History Date Name Laterality Status Provider Name and Address Organization Details Recorded Time Colonoscopy with biopsy completed Not Available Health Note 02/08/2024 12:33:21 Imaging Results Imaging Date Name Status LastModified by Organiz ation Details LastModified Time 05/16/2024 MRI, ankle, w/o contrast completed [id number] [facility] Only - [facility] [address] [place] [address], [address], 05/18/2024 13:53:37 05/16/2024 MRI, foot, w/o contrast completed [id number] [facility] - [facility] [address] [place] [address], [address], 05/18/2024 13:53:37 Procedure Notes None recorded. Medical Equipment None Reported. Allergies Allergen ID Allergen Name Allergen Category Reaction Reaction Severity Criticality Documentation Date Start Date Code Code System Note Provider Name and Address Organization Details Recorded Time 6681931 Substance with sulfonami de structure and antibacte rial mechanism of action (substanc e) medicatio n Not available Not available Not available 08/11/20232016 11604 8003 SNOMED Not Available Not Available Not Available 6616879 ethan extract food hives itching lighthead edness rash Not available Not available Not available Not available Not available 10/28/2023 68062 32 RxNorm Not Available Not Available Not Available 5393387 poison nathen extract environme nt itching rash Not available Not available Not available 01/09/2024 28414 6 RxNorm Not Available Not Available Not Available Medications Name Sig Start Date Stop Date Status Note LastModified by Organization Details LastModified Time losartan 50 mg tablet TAKE 1 TABLET BY MOUTH EVERYDAY AT BEDTIME active Not Available Not Available No t Available alendronate 70 mg tablet TAKE 1 TABLET BY MOUTH IN THE MORNING ONCE WEEKLY AT LEAST 30 MINS BEFORE BREAKFAST/B EVERAGE active Not Available Not Available No t Available torsemide 10 mg tablet TAKE 1 TABLET BY MOUTH EVERY DAY active Not Available Not Available No t Available tramadol 50 mg tablet TAKE 1 TABLET BY MOUTH EVERY 6 HOURS active Not Available Not Available No t Available methylpredni solone 4 mg tablets in a dose pack TAKE 6 TABLETS ON DAY 1 DIRECTED ON PACKAGE AND DECREASE BY 1 TAB EACH DAY FOR A TOTAL OF 6 DAYS active Not Available Not Available No t Available losartan 50 mg-hydrochlo rothiazide 12.5 mg tablet TAKE 1 TABLET BY MOUTH EVERY DAY active Not Available Not Available No t Available naproxen 500 mg tablet TAKE 1 TABLET BY MOUTH TWICE A DAY WITH FOOD NEEDED active Not Available Not Available No t Available rosuvastatin 5 mg tablet TAKE 1 TABLET BY MOUTH EVERY DAY active Not Available Not Available No t Available ibandronate 150 mg tablet active Not Available Not Available Not Available Paxlovid 300 mg (150 mg x 2)-100 mg tablets in a dose pack TAKE BY ORAL ROUTE 2 TIMES PER DAY PER PACKAGE DIRECTIONS FOR 5 DAYS active Not Available Not Available N ot Available Vitals None Recorded Social History Question Answer Notes LastModified by Organizat ion Details LastModified Time Do You Have An Advance Directive? No [email or web address] Information not available 02/08/2024 What Is Your Level Of Alcohol Consumption? Moderate [email or web address] Information not available 02/08/2024 How Many Times Per Week Do You Consume Alcohol? 3-4 Times Per Week [email or web address] Information not available 02/08/2024 What Is Your Level Of Caffeine Consumption? Moderate [email or web address] Information not available 02/08/2024 Are You Currently Employed? Yes [email or web address] Information not available 02/08/2024 What Is Your Occupation? Self Employed [email or web address] Information not available 02/08/2024 How Many Times Per Week Do You Exercise? 5-7 Times Per Week [email or web address] Information not available 02/08/2024 Do You Have A Medical Power Of Green Building Architect? Yes [email or web address] Information not available 02/08/2024 What Was The Date Of Your Most Recent Tobacco Screening? 02/15/2024 [email or web address] Information not available 02/08/2024 What Is Your Relationship Status? Domestic Partner [email or web address] Information not available 02/08/2024 Do You Use Any Illicit Or Recreational Drugs? No [email or web address] Information not available 02/08/2024 Sex: Unknown Functional Status Question Answer Note LastModified by Organizat ion Details LastModified Time What is your exercise level? Occasional [email or web address] Information not available 02/08/2024 Mental Status None recorded. Family History Relationship Description Onset Age of this Age Resolved Age Notes LastModified by Organization Details LastModified Time Unspecified Relation Attention deficit hyperactivit y disorder [email or web address] Not available 10/27 15:29:06 Father Heart disease [email or web address] Not available 2023 15:29:06 Father Hypercholest erolemia [email or web address] Not available 2023 15:29:06 Father Arthritis [email or web address] Not available 12/21/2023 11:14:36 Paternal Grandfather Heart disease [email or web address] Not available 2023 15:29:06 Mother Hypertensive disorder [email or web address] Not available 2023 15:29:06 Mother Osteoporosis [email or web address] Not availa ble 10/28/2023 15:29:06 Mother Arthritis [email or web address] Not available 12/21/2023 11:14:36 Maternal Grandmother Hypertensive disorder [email or web address] Not available 2023 15:29:06 Sister Osteoporosis [email or web address] Not availa ble 10/28/2023 15:29:06 Sister Arthritis [email or web address] Not available 12/21/2023 11:14:36 Paternal Grandmother Osteoporosis [email or web address] Not available 0 10/28/2023 15:29:06 Paternal Grandmother Arthritis [email or web address] Not available 12/12 13:21:57 Medical History Condition Response Attention-deficit Hyperactivity Disorder N High Blood Pressure Y Thyroid Problems N COPD N Depression N Anemia N Diabetes N Anxiety Disorder N Bleeding Disorder N Arthritis Y Hyperlipidemia N Cancer N Stroke N Asthma N Seizures N Heart Disease N Fibromyalgia N Osteoporosis Y Kidney Disease N Gynecological HistoryNo gynecological history recorded. Obstetrics History GPAL:G 0 P 0 0 0 0 Past Encounters Encounter ID Performer Location Encounter Start Date Encounter Closed Date Diagnosis/Indication Diagnosis SNOMED-CT Code Diagnosis ICD10 Code Diagnosis Note [id number] Jaja Krueger DPM [address] [facility] [place] ([place]) [address] [place] [address],[address] [place] [phone] 11/04/2023 11:23:10 11/04/2023 13:57:26 Tendinitis of right posterior tibial tendon 6961704678 76884 M76.821 Tibialis p osterior tendinitis 662716442 M76.829 Dysfunctio n of posterior tibial tendon 8365472001 54970 M67.[id number] Podiatry ([place]) [address] [place] [address],[address] [place] [address] 11/30/2023 10:44:13 11/30/2023 13:47:56 Tendinitis of right posterior tibial tendon 4416095621 20467 M76.821 Degenerati ve joint disease of ankle AND/OR foot 66564297 M19.940 [id number] Jaja Krueger DPM [address] [place] [address] Podiatry ([place]) [address] [place] [address] 12/21/2023 11:16:36 12/21/2023 12:40:22 Dysfunction of posterior tibial tendon 4796094788 58841 M67.969 Left peron eal tendon rupture 2796864980 2574726 S86.312D [id number] Jaja Krueger DPM [address] [place], [place] [address]iatry ([place]) [address] [place] [address] 01/11/2024 12:04:06 01/11/2024 13:20:45 Dysfunction of posterior tibial tendon 0651972649 12794 M67.969 Left peron eal tendon rupture 1787614679 2406065 S86.312D [id number] Jaja Krueger DPM [address] [place] [address] Podiatry ([place]) [address] [place] [phone] 02/15/2024 11:35:58 02/15/2024 18:32:50 Dysfunction of posterior tibial tendon 3108929128 24270 M67.969 Left peron eal tendon rupture 4407225594 8383468 S86.312D [id number] Jaja Sheila Krueger, AYO [address] [facility] ([place]) [address] [place] [address] 03/31/2024 12:02:59 03/31/2024 13:38:46 Nontraumatic rupture of tibialis posterior tendon 141192289 M66.872 Additional diagnosis detail: Nontraumat ic tear of left tibialis posterior tendon [id number] Jaja Sheila Krueger, AYO [address] [facility] ([place]) [address] [place] [address] 06/06/2024 16:29:35 06/06/2024 17:03:52 Dysfunction of posterior tibial tendon 2846108019 30645 M67.969 Left peron eal tendon rupture 3450046291 4327411 S86.312D Health Concerns Section Related Observation LastModified by Organization Detai ls LastModified Time None Recorded Concern Status LastModified by Organization Details LastModified Time None Recorded Advance Directives Directive N: Payers Encounter Date Sequence Insurance Name Policy Number Policy Granados Covered Member ID Granados Member ID Guarantor Name 12/21/2023 1 [place] Amanda Coello [id number] Amanda Jayson Coello 12/21/2023 2 [employer] (MEDICARE SUPPLEMENT) Amandajim Coello [id number] Amanda Coello 01/11/2024 1 [place] Amanda Coello [id number] Amanda Coello 01/11/2024 2 [employer] (MEDICARE SUPPLEMENT) Amanda Coello [id number] Amanda Coello 02/15/2024 1 [place] Amanda Coello [id number] Amanda Coello 02/15/2024 2 [employer] (MEDICARE SUPPLEMENT) Amanda Coello [id number] Amanda Coello 03/31/2024 1 [place] Amanda Coello [id number] Amanda Coello 03/31/2024 2 [employer] (MEDICARE SUPPLEMENT) Amanda Coello [id number] Amanda Coello 06/06/2024 1 [place] Amanda Coello [id number] 7 Amanda Tyler Coello 06/06/2024 2 [employer] (MEDICARE SUPPLEMENT) Amanda Coello [id number] Amanda Coello Notes Date Note Type Note Provider Name and Address Organization Details Recorded Time 4 text/html Patient presents today with her significant other for follow-up tibialis posterior interstitial tearing of the left foot her MRI. She has been in a cam boot for 3 weeks. She states she feels like she is about 80% better. She feels like the swelling has decreased however it remains slightly puffy. She states the first 3 days she wore the boot was terrible and she called here. She was told to loosen the boot however she states that was not the problem the problem when she was not told to keep her toes aligned with the knee and she was letting her foot abducted which was pulling on the torn tendon. When she stopped that in bed the pain went away. Jaja Krueger DPM [address] [place] [address], [phone], [employer] [facility] 12/21/2023 12:32:36 4 text/html Patient presents today with her significant other for follow-up tibialis posterior interstitial tearing of the left foot her MRI. She has been in a cam boot for 6 weeks and relates that she continues to improve. She has no pain sitting. She has a little bit of pain when she is up and walking for extended periods. She does not notice much swelling at this point. She is here today leave for [place] for a week and 2 weeks. She tells me that she is getting tired of the boot. Jaja Krueger DPM [address] [place] [address], [phone], [employer] 01/11/2024 13:19:39 4 text/html Amanda Pandya a 63 year oldfemalepresenting for follow-up minimal interstitial tear of the tibialis posterior tendon at the insertion left foot. She is here today with her . She did fine while going to [place]. She wore the cam boot on the airplane but for the first time made herself mostly wear the brace while she was there. They are getting ready to leave in March for [facility]. is very concerned about her activity as he states she has not been walking enough and does not have enough stamina built up. She needs to start working on that. Patient states that she has been going to physical therapy. She has been doing activities in the pool to try to strengthen her ankle she no longer has pain in the foot which is directly over the interstitial minimal tear but does have some pain running along the tendon as it courses behind the ankle. Patient wants to know what we would do if the pain does not subside. Would she require an ankle fusion? Would she require screw? She has a friend who had to have a screw for having flatfoot. They both have many questions. Jaja Krueger DPM [address] [place] [address], [phone], [employer] 02/15/2024 19:10:39 4 text/html Amanda Ya a 63 year oldfemalepresenting for care. Jaja Krueger DPM [address] [place] [address], [phone], [employer] 03/31/2024 13:26:47 4 text/html Amanda Ya a 64 year oldfemalepresenting for care. Jaja Krueger DPM [address] [place] [address], [phone], [employer] [facility] 06/06/2024 17:02:43 OBGyn Episode No OBEpisode recorded.
== END 2024-09-22 12:54 | disposition home or self-care (01) ==
PROVIDERS: PCP Internal Medicine; Visit Provider Nurse Practitioner Family
DX: Z12.31 Encounter for screening mammogram for malignant neoplasm of breast (principal); Z78.0 Asymptomatic menopausal state; M85.89 Other specified disorders of bone density and structure, multiple sites; M81.0 Age-related osteoporosis without current pathological fracture; M50.323 Other cervical disc degeneration at C6-C7 level
CPT/HCPCS: 72040; 77063; 77067; 77080

== ENCOUNTER 2024-10-13 08:58 | Outpatient (CLI) | payer MEDICARE, SELFPAY ==
--- OUTSIDE RECORDS SUMMARY | 2024-10-13 09:09 | XMS_ITS | Patient Health Record ---
Author Organization [facility] Address [address] [place], [place] [phone] Care Team Providers Care Deep Fryer Assembler Name Role Phone Domenic Etienne Unavailable Unavailable ANDRY NUNEZ Unavailable [phone] Allergies Allergen (clinical drug ingredient) Drug/Non Drug [...] 1 tablet Orally Once a day Active Plan Of Treatment No Information Insurance Providers Payer Name Payer Address Payer Phone Subscriber Number Group Number Insured Name Patient Relationship to Insured Coverage Start Date Coverage End Date Medicare Part B [place] [address] [place] [address] [id number] Amanda Coello Self - patient is the insured [facility] [address] [place] [address] [id number] Amanda Coello Self - patient is the insured [facility] [address], [place] [id number] Amanda Coello Self - patient is the insured Medical (General) History Medical History History ICD Code Arthritis Sleep apnea Back Trouble hypertension
--- OUTSIDE RECORDS SUMMARY | 2024-10-13 09:09 | XMS_ITS ---
Author Organization [facility] Address [address] [place], [place] [phone] Care Team Providers Care Wireless Manager Name Role Phone Domenic Etienne Unavailable Unavailable ANDRY NUNEZ Unavailable [phone] REASON FOR VISIT CHECK Encounters Encounter Location Date Provider Diagnosis [address] [phone] 10/14/2023 ANDRY NUNEZ Plan Of Treatment No Information Progress Notes * Amanda PIZARRODOB:1960 (64 yo F)Acc No.[id number]:10/14/2023 Patient: Domonique GARCIAita Provider: Kiana NUNEZ :1960 A ge:63 Y S ex:Female Date:10/14/2023 Address:[address] [place] [phone] Subjective: * Chief Complaints: * 1 . CHECK. * Medical History: Objective: * Vitals: Assessment: Plan: * Treatment: * Billing Information: * Visit Code: * Procedure Codes: * Electronic signature of MAXIMUS NUNEZ DPM on 10/13/2024 at 09:09 AM CDT Sign off status: Pending * Provider: Kiana NUNEZ Date: 0 10/14/2023 Generated for Erica smith/Mary/eTrebelitting on: 10/13/2024 09:09 AM CDT
--- OUTSIDE RECORDS SUMMARY | 2024-10-13 09:10 | XMS_ITS | Data Portability ---
Author Organization [facility], [address] [facility] ([place]) Address [address] [place] [address] Care Team Providers Care Clinical Science Liaison Name Role Phone GHISLAINE WHITTEN Primary Care Provider [phone] Assessment No assessment recorded. Plan of Treatment [...] 05/16/2024 MRI, ankle , w/o contr ast [place] [address] [address] Teleph one [phone] Name: Amanda Coello [id number] Exam Date: 2023 Age: 64 Physic ciarra: Pati DPM, Jaja : 1959 Examin ation: MRI ANKLE WO LEFT EXAM: MRI left ankle and foot withou t contra st HISTOR Y: Concer n for bean dumper ior tibial is tendon tear and reinju [...] or talofi bular, calcan eofibu lar and bean dumper ior talofi bular ligame nts. There is a chroni c partia l tear of the deep fibers of the deltoi d ligame nt. There is a persis tent large osseou s fragme nt seen in the chrissy latera l gutter on T1 axial image 16. There is a stable partia l inters titial tear involv ing the distal bean dumper ior tibial is tendon on T2 axial [...] partia l intras ubstan ce tear, distal bean dumper ior tibial is tendon . 4. Stable flexor and perone al tenosy noviti s. 5. Chroni c tears of multip le ankle ligame nts. 6. Osteoa rthrit is. 7. No new ligame nt or tendon tear. Electr onical ly signed in Schulz cribe by: EDWIN TAYLOR MD on:05/17/2024 8:21 AM cc: Page PAGE 1 of [facility] 1 [email or web address] Wy Only - S c Radiology [address] [place], [address], 05/18/2024 13:53:37 05/17/20 24 05/16/2024 MRI, foot, w/o contr ast [facility] [address] [place] [address] Teleph one [phone] Name: Amanda Coello [id number] Exam Date: 2023 Age: 64 Physic ciarra: AYO Krueger, Jaja : 1959 Examin ation: MRI FOOT WO LEFT EXAM: MRI left ankle and foot withou t contra st HISTOR Y: Concer n for bean dumper ior tibial is tendon tear and reinju [...] or talofi bular, calcan eofibu lar and bean dumper ior talofi bular ligame nts. There is a chroni c partia l tear of the deep fibers of the deltoi d ligame nt. There is a persis tent large osseou s fragme nt seen in the chrissy latera l gutter on T1 axial image 16. There is a stable partia l inters titial tear involv ing the distal bean dumper ior tibial is tendon on T2 axial [...] partia l intras ubstan ce tear, distal bean dumper ior tibial is tendon . 4. Stable flexor and perone al tenosy noviti s. 5. Chroni c tears of multip le ankle ligame nts. 6. Osteoa rthrit is. 7. No new ligame nt or tendon tear. Electr onical ly signed in Roann cri by: EDWIN TAYLOR MD on:05/17/2024 8:22 AM cc: Page PAGE 1 of [facility] 1 [email or web address] Wy Only - S c Radiology [address] [place] [address], [address], 05/18/2024 13:53:37 Result Notes None recorded. Problems Name Problem SNOMED Code Status Onset Date Resolution Date Notes Provider Name and Address Organization Details Recorded Time Nontraumati c rupture of tibialis posterior tendon 671540912 Active 2023 Jaja Krueger DPM [address] [place] [address], [phone], [facility] 4 13:26:30 Left peroneal tendon rupture 5131399630316 9108 Active 2023 Jaja Krueger DPM [address] [place] [address], [address], [facility] 4 16:58:43 Dysfunction of posterior tibial tendon 7012009402747 05 Active 2023 Ella Lugo [facility] 4 12:57:08 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 Procedures Surgical History Date Name Laterality Status Provider Name and Address Organization Details Recorded Time Colonoscopy with biopsy completed Not Available Health Note 02/08/2024 12:33:21 Imaging Results Imaging Date Name Status LastModified by Organiz ation Details LastModified Time 05/16/2024 MRI, ankle, w/o contrast completed [id number] [facility] Only - [facility] Radiology [address] [place] [address], [address], 05/18/2024 13:53:37 05/16/2024 MRI, foot, w/o contrast completed [id number] [facility] Only - [facility] Radiology [address] [place] [address], [address], 05/18/2024 13:53:37 Procedure Notes None recorded. Medical Equipment None Reported. Allergies Allergen ID Allergen Name Allergen Category Reaction Reaction Severity Criticality Documentation Date Start Date Code Code System Note Provider Name and Address Organization Details Recorded Time 1434751 Substance with sulfonami de structure and antibacte rial mechanism of action (substanc e) medicatio n Not available Not available Not available 08/11/20232016 45534 8003 SNOMED Not Available Not Available Not Available 7167258 ethan extract food hives itching lighthead edness rash Not available Not available Not available Not available Not available 10/28/2023 65199 32 RxNorm Not Available Not Available Not Available 3262038 poison nathen extract environme nt itching rash Not available Not available Not available 01/09/2024 66226 6 RxNorm Not Available Not Available Not [...] Do You Have A Medical Power Of Icu Rn? Yes [email or web address] Information not available 02/08/2024 What [...] available 12/12 13:21:57 Medical History Condition Response Diabetes N Anxiety Disorder N Bleeding Disorder N Attention-deficit Hyperactivity Disorder N High Blood Pressure Y Arthritis Y Hyperlipidemia N Cancer N Stroke N Thyroid Problems N Asthma N Depression N COPD N Anemia N Seizures N Heart Disease N Fibromyalgia N Osteoporosis Y Kidney Disease N Gynecological HistoryNo gynecological history recorded. Obstetrics History GPAL:G 0 P 0 0 0 0 Past Encounters Encounter ID Performer Location Encounter Start Date Encounter Closed Date Diagnosis/Indication Diagnosis SNOMED-CT Code Diagnosis ICD10 Code Diagnosis Note [id number] Jaja Krueger DPM [address] [facility] Podiat[facility] ([place]) [address] [place] [address],[address] [place] [address] 11/04/2023 11:23:10 11/04/2023 13:57:26 Tendinitis of right posterior tibial tendon 4105493223 16275 M76.821 Tibialis p osterior tendinitis 045189478 M76.829 Dysfunctio n of posterior tibial tendon 8465829677 49582 M67.[id number] Podiat[facility] ([place]) [address] [place] [address],[address] [place] [address] 11/30/2023 10:44:13 11/30/2023 13:47:56 Tendinitis of right posterior tibial tendon 4776476439 98378 M76.821 Degenerati ve joint disease of ankle AND/OR foot 72192526 M19.220 [id number] Jaja Krueger DPM [address] [place] [address] Podiatry ([place]) [address] [place] [phone] 12/21/2023 11:16:36 12/21/2023 12:40:22 Dysfunction of posterior tibial tendon 5502044700 14449 M67.969 Left peron eal tendon rupture 3358776751 9819197 S86.312D [id number] Jaja Krueger DPM [address] [place], [place] [address]iat[place] ([place]) [address] [place] [address] 01/11/2024 12:04:06 01/11/2024 13:20:45 Dysfunction of posterior tibial tendon 7410897852 57244 M67.969 Left peron eal tendon rupture 1537901953 9629420 S86.312D [id number] Jaja Krueger DPM [address] [place] [address] Podiatry [place]) [address] [place] [address] 02/15/2024 11:35:58 02/15/2024 18:32:50 Dysfunction of posterior tibial tendon 6540909723 68383 M67.969 Left peron eal tendon rupture 7708286814 1167675 S86.312D [id number] Jaja Sheila Krueger, AYO [address] Pod[facility] ([place]) [address] [place] [address] 03/31/2024 12:02:59 03/31/2024 13:38:46 Nontraumatic rupture of tibialis posterior tendon 094760153 M66.872 Additional diagnosis detail: Nontraumat ic tear of left tibialis posterior tendon [id number] Jaja Sheila Krueger, AYO [address] [facility] ([place]) [address] [place] [address] 06/06/2024 16:29:35 06/06/2024 17:03:52 Dysfunction of posterior tibial tendon 6060471223 79977 M67.969 Left peron eal tendon rupture 8939781074 7943716 S86.312D Health Concerns Section Related Observation LastModified by Organization Detai ls LastModified Time None Recorded Concern Status LastModified by Organization Details LastModified Time None Recorded Advance Directives Directive N: Payers Encounter Date Sequence Insurance Name Policy Number Policy Granados Covered Member ID Granados Member ID Guarantor Name 12/21/2023 1 [place] Amanda Coello [id number] Amanda Jayson Coello 12/21/2023 2 [employer] (MEDICARE SUPPLEMENT) Amandajim Coello [id number] Amanda Coello 01/11/2024 1 [place] Amanda Coello [id number] Amanda Coello 01/11/2024 2 [employer] (MEDICARE SUPPLEMENT) Amanda Coello [id number] Amanda Coello 02/15/2024 1 [place] Amanda Coello [id number] Amanda Coello 02/15/2024 2 [employer] (MEDICARE SUPPLEMENT) Amanda Coello [id number] Amanda Coello 03/31/2024 1 [place] Amanda Coello [id number] Amanda Coello 03/31/2024 2 [employer] (MEDICARE SUPPLEMENT) Amanda Coello [id number] Amanda Coello 06/06/2024 1 [place] Amanda Coello [id number] Amanda Tyler Coello 06/06/2024 2 [employer] (MEDICARE SUPPLEMENT) Amanda Coello [id number] Amanda Coello Notes Date Note Type Note [...] went away. Jaja Krueger DPM [address] [place] [address], [phone], [facility] 12/21/2023 12:32:36 4 text/html Patient presents today [...] point. She is here today leave for [place] for a week and 2 weeks. She tells me that she is getting tired of the boot. Jaja Krueger DPM [address] [place] [address], [phone], [facility] 01/11/2024 13:19:39 4 text/html Amanda Pandya a 63 year oldfemalepresenting for follow-up minimal interstitial tear of the tibialis posterior tendon at the insertion left foot. She is here today with her . She did fine while going to [place]. She wore the cam boot on the airplane but for the first time made herself mostly wear the brace while she was there. They are getting ready to leave in March for [facility]. is very concerned about her activity as [...] many questions. Jaja Krueger DPM [address] [place] [address], [phone], [facility] 02/15/2024 19:10:39 4 text/html Amanda Ya a 63 year oldfemalepresenting for care. Jaja Krueger DPM [address] [place] [address], [address], [facility] 03/31/2024 13:26:47 4 text/html Amanda Ya a 64 year oldfemalepresenting for care. Jaja Krueger DPM [address] [place] [address], [address], [facility] 06/06/2024 17:02:43 OBGyn Episode No OBEpisode recorded.
--- OUTSIDE RECORDS SUMMARY | 2024-10-13 09:10 | XMS_ITS ---
Author Organization [facility] Address [address] [place], [place] [phone] Care Team Providers Care Sheet Metal Duct Installer Helper Name Role Phone Domenic Etienne Unavailable Unavailable ANDRY NUNEZ Unavailable [phone] Allergies Allergen (clinical drug ingredient) Drug/Non Drug [...] Date Status Ciclopirox 8 % 1 application Gear Grinder ally Once a day for 30 days 09/30/2023 12/29/2023 Active Naproxen 375 MG 1 tablet with food o r milk as needed Orally every 12 hrs Active Torsemide 20 MG as directed Orally Active Losartan Potassium 25 MG 1 tablet Orally Once a day Active Vital Signs Weight 194 lbs 09/30/2023 Weight-kg 88 kg 09/30/2023 Height 67 in 09/30/2023 Height-cm 170.18 cm 09/30/2023 BMI 30.38 kg/m2 09/30/2023 Encounters Encounter Location Date Provider Diagnosis [facility] [place] [address] [place], [place] [phone] 09/30/2023 ANDRY NUNEZ Flat foot [pes planus] [...] Date Notes Ciclopirox 8 % 1 application Gear Grinder ally Once a day for 30 days [...] Notes * Amanda PIZARRODOB:1960 (63 yo F)Acc No.[id number]:09/30/2023 Progress Notes Patient: Amanda GARCIA Provider: Kiana NUNEZ :1960 A ge:63 Y S ex:Female Date:09/30/2023 Address:[address] [place], [place] [phone] Subjective: * Chief Complaints: * 1 . [...] Patient denies c hest pain, history of [place], irregular heartbeat. M usculoskeletal: Patient complains of [...] Months * Billing Information: * Visit Code: 55002 Office Visit, New Pt., Level 4. * Procedure Codes: L1902 AFO ANK GAUNTLT PREFAB W/FIT&ADJ. Modifiers: RT * Sign off status: Completed true * Provider: Kiana NUNEZ Date: 0 09/30/2023 Generated for Erica smith/Mary/Sherry on: 0 10/13/2024 09:09 AM CDT History and Physical Notes * HPI [...]
[2024-10-13 09:11] VITALS: BP 121/67; PULSE 80; RESP 14; TEMP 36.4; O2SAT 98; BMI 31.4
[2024-10-13] MEDS: DENOSUMAB 60 MG/ML SYRINGE SUB-Q (09:15)
--- NOTE | 2024-10-13 09:26 | PC.NURSE ---
Patient here for Prolia injection. Education given. Concerns successful addressed. Injection administered. SEE MAR/patient care notes. Tolerated well.
== END 2024-10-13 08:59 | disposition home or self-care (01) ==
PROVIDERS: PCP Internal Medicine; Visit Provider Nurse Practitioner Family
DX: M81.0 Age-related osteoporosis without current pathological fracture (principal)
CPT/HCPCS: 96372; J0897

== ENCOUNTER 2025-05-07 11:23 | Outpatient (CLI) | payer MEDICARE, SELFPAY ==
[2025-05-07 11:34] VITALS: BP 132/80; PULSE 80; RESP 14; TEMP 36.6; O2SAT 98; BMI 31.4
[2025-05-07] MEDS: DENOSUMAB 60 MG/ML SYRINGE SUB-Q (11:50)
[2025-05-07 11:56] VITALS: BP 132/76
--- OUTSIDE RECORDS SUMMARY | 2025-05-07 13:06 | XMS_ITS | Patient Health Record ---
Author Organization [facility] Address [address] [place], [place] [address] Care Team Providers Care Manager University Name Role Phone Domenic Etienne Unavailable Unavailable Allergies Allergen (clinical drug ingredient) Drug/Non Drug Allergy documented on EMR Reaction Allergy Type Onset Date Status ethan (uncoded) Unknown Allergy Acti ve Substance with sulfonamide structure and antibacterial mechanism of action (substance) Sulfa Antibiotics Unknown Drug Allergy Active Reason For Referral No Information Medications Medication SIG (Take, Route, Frequency, Duration) Notes Start Date End Date Status Naproxen 375 MG Tablet 1 tablet with donna d or milk as needed Orally every 12 hrs Active Torsemide 20 MG Tablet as directed Orally Active Losartan Potassium 25 MG Tablet 1 tablet Orally Once a day A ctive Plan Of Treatment No Information Insurance Providers Payer Name Payer Address Payer Phone Subscriber Number Group Number Insured Name Patient Relationship to Insured Coverage Start Date Coverage End Date Medicare Part B [place] [address] [place] [address] [id number] Amanda Coello Self - patient is the insured [address] [place] [address] [phone] [id number] Amanda Coello Self - patient is the insured [facility] [address] [place], [place] [id number] Amanda Coello Self - patient is the insured Medical (General) History Medical History History ICD Code Arthritis Sleep apnea Back Trouble hypertension
== END 2025-05-07 11:24 | disposition home or self-care (01) ==
PROVIDERS: PCP Internal Medicine; Visit Provider Nurse Practitioner Family
DX: M81.0 Age-related osteoporosis without current pathological fracture (principal)
CPT/HCPCS: 96372; J0897

== ENCOUNTER 2025-05-25 11:11 | Outpatient (CLI) | payer MEDICARE, SELFPAY ==
[2025-05-25 11:30] LABS: Hematocrit 40.6 % (35.0-42.0); Hemoglobin 13.4 g/dL (11.7-13.8); Mean Corpuscular HGB Conc 33.0 g/dL (32-36); Mean Corpuscular Hemoglobin 30.7 pg (27.0-31.0); Mean Corpuscular Volume 93.1 fL (78.0-102.0); Platelet Count Result 289 K/mm3 (150-420); Red Blood Count 4.36 M/mm3 (4.20-5.40); White Blood Count 5.9 K/mm3 (4.8-10.8)
[2025-05-25 11:31] LABS: Add Urine Microscopic? YES; Appearance Urine Clear (Clear); Glucose Urine UA Negative (Negative); Leukocyte Esterase Ur 1+ (Negative); Nitrate Urine Negative (Negative); Specific Grav Ur <= 1.005 (1.010-1.020)
[2025-05-25 11:44] LABS: Alanine Aminotransferase 29 U/L (6-35); Albumin Level 5.0 g/dL (3.5-5.1); Alkaline Phosphatase 102 U/L (38-126); Anion Gap 11 mmol/L (4-12); Aspartate Amino Transferase 34 U/L (14-36); Blood Urea Nitrogen 13 mg/dL (7-17); Calcium 9.5 mg/dL (8.4-10.2); Carbon Dioxide 29 mmol/L (22-30); Chloride 103 mmol/L (98-107); Cholesterol 216 mg/dL (0-200); Estimated Glomerular Filt Rate > 60; Glucose 112 mg/dL (65-110); HDL Direct 100 mg/dL; Osmolality Calculated 297 mOsm/kg (285-295); Potassium 4.1 mmol/L (3.4-5.0); Sodium 143 mmol/L (137-145); Total Protein 7.5 g/dL (6.3-8.2); Triglycerides 125 mg/dL (<150)
[2025-05-25 11:45] LABS: Hemoglobin A1C 5.8 % (<5.7)
[2025-05-25 11:52] LABS: MALB Creatinine Ratio 15.2 mg/g (0-30)
[2025-05-25 12:08] LABS: Influenza A QL RT-PCR Negative (Negative); Influenza B QL RT-PCR Negative (Negative); RSV RNA, RT-PCR Negative (Negative); SARS-CoV-2 RNA PCR Negative (Negative)
[2025-05-25 12:14] LABS: Thyroid Stimulating Hormone 2.780 uIU/mL (0.465-4.680)
--- OUTSIDE RECORDS SUMMARY | 2025-05-25 15:40 | XMS_ITS | Data Portability ---
Author Organization [facility], [address] [place]rology ([place]) Address [address] [place] [address] Care Team Providers Care Traffic Control Flagger Name Role Phone GHISLAINE WHITTEN Primary Care [...] 05/16/2024 MRI, ankle , w/o contr ast [address] [address] Teleph one [phone] Name: Amanda Coello [id number] Exam Date: 2023 Age: 64 Physic ciarra: Pati Jaja ROLLINS : 1959 Examin ation: MRI ANKLE WO LEFT EXAM: MRI left ankle and foot withou t contra st HISTOR Y: Concer n for marketing traffic coordinator ior tibial is tendon tear and reinju [...] or talofi bular, calcan eofibu lar and marketing traffic coordinator ior talofi bular ligame nts. There is a chroni c partia l tear of the deep fibers of the deltoi d ligame nt. There is a persis tent large osseou s fragme nt seen in the chrissy latera l gutter on T1 axial image 16. There is a stable partia l inters titial tear involv ing the distal marketing traffic coordinator ior tibial is tendon on T2 axial [...] partia l intras ubstan ce tear, distal marketing traffic coordinator ior tibial is tendon . 4. Stable flexor and perone al tenosy noviti s. 5. Chroni c tears of multip le ankle ligame nts. 6. Osteoa rthrit is. 7. No new ligame nt or tendon tear. Electr onical ly signed in Schulz cribe by: EDWIN TAYLOR MD on:05/17/2024 8:21 AM cc: Page PAGE 1 of [facility] 1 [email or web address] Dc Only - S c Radiology [address] [place], [address], 05/18/2024 13:53:37 05/17/20 24 05/16/2024 MRI, foot, w/o contr ast [facility] [address] [place] [address] Teleph one Name: Amanda Coello [id number] Exam Date: 2023 Age: 64 Physic ciarra: AYO Krueger, Jaja : 1959 Examin ation: MRI FOOT WO LEFT EXAM: MRI left ankle and foot withou t contra st HISTOR Y: Concer n for marketing traffic coordinator ior tibial is tendon tear and reinju [...] or talofi bular, calcan eofibu lar and marketing traffic coordinator ior talofi bular ligame nts. There is a chroni c partia l tear of the deep fibers of the deltoi d ligame nt. There is a persis tent large osseou s fragme nt seen in the chrissy latera l gutter on T1 axial image 16. There is a stable partia l inters titial tear involv ing the distal marketing traffic coordinator ior tibial is tendon on T2 axial [...] partia l intras ubstan ce tear, distal marketing traffic coordinator ior tibial is tendon . 4. Stable flexor and perone al tenosy noviti s. 5. Chroni c tears of multip le ankle ligame nts. 6. Osteoa rthrit is. 7. No new ligame nt or tendon tear. Electr onical ly signed in Schulz bobo by: EDWIN TAYLOR MD on:05/17/2024 8:22 AM cc: Page PAGE 1 of [facility] 1 [email or web address] Dc Only - S c Radiology [address] [place], [address], 05/18/2024 13:53:37 Result Notes Documentation Provider Name and Address Organization Details Recorded Time Mri, Ankle, W/o Contrast : [facility] [address] [place] [address] Name: Amanda Coello Exam Date: 05/16/2024 Age: 64 Physician: AYO Krueger Mary : 1960 Examination: MRI ANKLE WO LEFT EXAM: MRI left ankle and foot without contrast HISTORY: Concern for posterior tibialis tendon tear and reinjury during physical therapy. COMPARISON: 11/10/2023. TECHNIQUE: T1, inversion recovery and T2 fat-saturated multiplanar MR images of the left ankle and foot were performed without contrast. FINDINGS: The ankle and subtalar joint effusions have improved since comparison exam. There are chronic complete tears of the anterior talofibular, calcaneofibular and posterior talofibular ligaments. There is a chronic partial tear of the deep fibers of the deltoid ligament. There is a persistent large osseous fragment seen in the anterolateral gutter on T1 axial image 16. There is a stable partial interstitial tear involving the distal posterior tibialis tendon on T2 axial image 23. There is a moderate amount of fluid within the flexor tendon sheaths. There is a small amount of fluid within the peroneal tendon sheaths. The extensor, peroneal and Achilles tendons are intact. The flexor digitorum longus and hallucis tendons are intact. There is an os trigonum. The spring and Lisfranc ligaments are intact. There is persistent synovitis in the tarsal sinus. There is improving marrow edema seen within the lateral process of the talus. There is moderate to severe osteoarthritis, worse in the tibiotalar and first metatarsophalangeal joints. There are second and third hammertoe deformities. There are small to moderate-sized metatarsophalangeal joint effusions. There are degenerative cysts seen within the talus, lateral process of the talus, and first MTP joint. No fracture identified. The plantar fascia is intact. There are small degenerative calcaneal enthesophytes. IMPRESSION: 1. Improving ankle and subtalar joint effusions. 2. Improving marrow edema in the lateral process of the talus. 3. Stable partial intrasubstance tear, distal posterior tibialis tendon. 4. Stable flexor and peroneal tenosynovitis. 5. Chronic tears of multiple ankle ligaments. 6. Osteoarthritis. 7. No new ligament or tendon tear. Electronically signed in PowerScribe by: EDWIN TAYLOR MD on:05/17/2024 8:21 AM cc: Page PAGE 1 of [facility] 1 Macey Abdi [facility] 05/18/2024 13:53:37 Mri, Foot, W/o Contrast : [address] [address] Name: Amanda Coello Exam Date: 05/16/2024 Age: 64 Physician: AYO Krueger Mary : 1960 Examination: MRI FOOT WO LEFT EXAM: MRI left ankle and foot without contrast HISTORY: Concern for posterior tibialis tendon tear and reinjury during physical therapy. COMPARISON: 11/10/2023. TECHNIQUE: T1, inversion recovery and T2 fat-saturated multiplanar MR images of the left ankle and foot were performed without contrast. FINDINGS: The ankle and subtalar joint effusions have improved since comparison exam. There are chronic complete tears of the anterior talofibular, calcaneofibular and posterior talofibular ligaments. There is a chronic partial tear of the deep fibers of the deltoid ligament. There is a persistent large osseous fragment seen in the anterolateral gutter on T1 axial image 16. There is a stable partial interstitial tear involving the distal posterior tibialis tendon on T2 axial image 23. There is a moderate amount of fluid within the flexor tendon sheaths. There is a small amount of fluid within the peroneal tendon sheaths. The extensor, peroneal and Achilles tendons are intact. The flexor digitorum longus and hallucis tendons are intact. There is an os trigonum. The spring and Lisfranc ligaments are intact. There is persistent synovitis in the tarsal sinus. There is improving marrow edema seen within the lateral process of the talus. There is moderate to severe osteoarthritis, worse in the tibiotalar and first metatarsophalangeal joints. There are second and third hammertoe deformities. There are small to moderate-sized metatarsophalangeal joint effusions. There are degenerative cysts seen within the talus, lateral process of the talus, and first MTP joint. No fracture identified. The plantar fascia is intact. There are small degenerative calcaneal enthesophytes. IMPRESSION: 1. Improving ankle and subtalar joint effusions. 2. Improving marrow edema in the lateral process of the talus. 3. Stable partial intrasubstance tear, distal posterior tibialis tendon. 4. Stable flexor and peroneal tenosynovitis. 5. Chronic tears of multiple ankle ligaments. 6. Osteoarthritis. 7. No new ligament or tendon tear. Electronically signed in [facility] by: EDWIN TAYLOR MD on:05/17/2024 8:22 AM cc: Page PAGE 1 of [facility] [address] [facility], [facility] 05/18/2024 13:53:37 Problems Name Problem SNOMED Code Status Onset Date Resolution Date Notes Provider Name and Address Organization Details Recorded Time Dysfunction of posterior tibial tendon 0275096048778 05 Active 2023 [facility] 12:57:08 Osteoarthri tis of ankle and/or foot 75523984 Active 2023 Jaja Krueger, DPM [address], [place], [address], [facility] 4 13:23:27 Nontraumati c rupture of tibialis posterior tendon 411824103 Active 2023 Jaja Krueger, DPM [address], [place], [address], [facility] 4 13:26:30 Left peroneal tendon rupture 3748062792925 9108 Active 2023 Jaja Sheila Krueger, DPM [address], [place], [address], [facility] 4 16:58:43 Problem Notes None recorded. Procedures Surgical History Date Name Laterality Status Provider Name and Address Organization Details Recorded Time Colonoscopy with biopsy completed Not Available Health Note 02/08/2024 12:33:21 Imaging Results None recorded. Procedure Notes None recorded. Medical Equipment None Reported. Allergies Allergen ID Allergen Name Allergen Category Reaction Reaction Severity Criticality Documentation Date Start Date Code Code System Note Provider Name and Address Organization Details Recorded Time 8457076 Substance with sulfonami de structure and antibacte rial mechanism of action (substanc e) medicatio n Not available Not available Not available 08/11/20232016 48310 8003 SNOMED Not Available [facility] 4 04:03:05 1217338 ethan extract food hives itching lighthead edness rash Not available Not available Not available Not available Not available 10/28/2023 02240 32 RxNorm Not Available Health Note 4 15:29:07 7687362 poison nathen extract environme nt itching rash Not available Not available Not available 01/09/2024 00659 6 RxNorm Not Available Health Note 4 13:21:57 Medications Name Sig Start Date Stop Date [...] Do You Have A Medical Power Of Hvac Installation Technician? Yes [email or web address] Information not available 02/08/2024 What Was The Date Of Your Most Recent Tobacco Screening? 02/15/2024 [email or web address] Information not available 02/08/2024 What Is Your Relationship Status? Domestic Partner [email or web address] Information not available 02/08/2024 Sex: Unknown Functional Status Question Answer Note LastModified by Organizat ion Details LastModified Time How many times per week do you consume alcohol? 3-4 times per week [email or web address] Information not available 02/08/2024 Do you use any illicit or recreational drugs? No [email or web address] Information not available 02/08/2024 What is your level of alcohol consumption? Moderate [email or web address] Information not available 02/08/2024 Are you currently employed? Yes [email or web address] Information not available 02/08/2024 What is your occupation? Self employed [email or web address] Information not available 02/08/2024 What is your exercise level? Occasional [email or web address] [...] Y Arthritis Y Hyperlipidemia N Cancer N Thyroid Problems N Stroke N Asthma N COPD N Depression N Anemia N Seizures N Heart Disease N Fibromyalgia N Osteoporosis Y Kidney Disease N Gynecological HistoryNo gynecological history recorded. Obstetrics History GPAL:G 0 P 0 0 0 0 Past Encounters Encounter ID Performer Location Encounter Start Date Encounter Closed Date Diagnosis/Indication Diagnosis SNOMED-CT Code Diagnosis ICD10 Code Diagnosis IMO Codes Diagnosis Note [id number] Jaja Krueger DPM [address] [facility] Podiatry ([place]) [address] [place] [address] 11/04/2023 11:23:10 11/04/2023 13:57:26 Tendinitis of right posterior tibial tendon 5701714794 98406 M76.821 Tibialis p osterior tendinitis 748852661 M76.829 Dysfunctio n of posterior tibial tendon 1276255805 00843 M67.178 [id number] Jaja Krueger DPM [address] [place] [address] Podiatry ([place]) [address] [place] [id number] 11/30/2023 10:44:13 11/30/2023 13:47:56 Tendinitis of right posterior tibial tendon 2841426277 06573 M76.821 Osteoarthr itis of ankle and/or foot 42585562 M19.896 [id number] Jaja Krueger DPM [address] [place] [address] [place]iatry ([place]) [address] [place] [phone] 12/21/2023 11:16:36 12/21/2023 12:40:22 Dysfunction of posterior tibial tendon 0153752504 30946 M67.969 Left peron eal tendon rupture 7966984248 5778763 S86.312D [id number] Jaja Krueger DPM 800 [facility] [place] ([place]) [address] [place] [phone] 01/11/2024 12:04:06 01/11/2024 13:20:45 Dysfunction of posterior tibial tendon 2974979539 63058 M67.969 Left peron eal tendon rupture 7916233164 7709190 S86.312D [id number] Jaja Krueger DPM [address] Pod[facility] ([place]) [address] [place] [address] 02/15/2024 11:35:58 02/15/2024 18:32:50 Dysfunction of posterior tibial tendon 0420050425 42175 M67.969 Left peron eal tendon rupture 9616324065 0090968 S86.312D [id number] Jaja Krueger, AYO [address] [facility] ([place]) [address] [place] [phone] 03/31/2024 12:02:59 03/31/2024 13:38:46 Nontraumatic rupture of tibialis posterior tendon 668238624 M66.872 Additional diagnosis detail: Nontraumat ic tear of left tibialis posterior tendon [id number] Jaja Krueger, AYO [address] [facility] ([place]) [address] [place] [phone] 06/06/2024 16:29:35 06/06/2024 17:03:52 Dysfunction of posterior tibial tendon 6319614320 [address]689 M67.969 Left peron eal tendon rupture 1785920771 4251503 S86.312D Health Concerns Section Related Observation LastModified by Organization Detai ls LastModified Time None Recorded Concern Status LastModified by Organization Details LastModified Time None Recorded Advance Directives Directive N: Payers Insurance Date Sequence Insurance Name Policy Number Policy Granados Covered Member ID Granados Member ID Guarantor Name 11/04/2023 1 [place] [id number] Amanda Coello [id number] Amanda Coello 06/07/2024 2 [employer] (MEDICARE SUPPLEMENT) Amanda Coello [id number] Amanda Coello 05/12/2024 1 [place] Amanda Coello [id number] Amanda Coello 05/12/2024 [employer] - D[employer]POS ASSIGNED (MEDICARE DME REGION B) Amanda Coello [id number] Amanda Coello 08/25/2024 PAYMENT PLAN Amanda Coello Notes Date Note Type Note [...] in bed the pain went away. Jaja Krueger, AYO [address] [place] [address], [phone], [facility] 12/21/2023 12:32:36 4 text/html Patient presents today [...] point. She is here today leave for [place] for a week and 2 weeks. She tells me that she is getting tired of the boot. Jaja Krueger, AYO [address] [place] [address], [phone], [facility] 01/11/2024 13:19:39 4 text/html Amanda Coellois a 63 year oldfemalepresenting for follow-up minimal interstitial tear of the tibialis posterior tendon at the insertion left foot. She is here today with her . She did fine while going to [place]. She wore the cam boot on the airplane but for the first time made herself mostly wear the brace while she was there. They are getting ready to leave in March for [facility]. is very concerned about her activity as [...] many questions. Jaja Krueger DPM [address] [place] [address], [phone], [facility] 02/15/2024 19:10:39 4 text/html Amanda Pandya a 63 year oldfemalepresenting for care. Jaja Krueger DPM [address] [place] [address], [phone], [facility] 03/31/2024 13:26:47 4 text/html Amanda Pandya a 64 year oldfemalepresenting for care. Jaja Krueger DPM [address] [place] [address], [phone], [facility] 06/06/2024 17:02:43 OBGyn Episode No OBEpisode recorded.
--- OUTSIDE RECORDS SUMMARY | 2025-05-25 15:40 | XMS_ITS | Patient Health Record ---
Author Organization [facility] Address [address] [place], [place] [id number] Care Team Providers Care Plant Technician/Control Room Operator Name Role Phone Domenic Etienne Unavailable Unavailable [...] Date Coverage End Date Medicare Part B [place] [address] [place] [address] [id number] Amanda Coello Self - patient is the insured [address] [place] [address] [id number] Amanda Coello Self - patient is the insured [facility] [address] [place], [place] [id number] Amanda Coello Self - patient is the insured Medical (General) History Medical History History ICD Code Arthritis Sleep apnea Back Trouble hypertension
[2025-05-29 13:50] LABS: Bilirubin,Total 0.5 mg/dL (0.2-1.3)
== END 2025-05-25 11:12 | disposition home or self-care (01) ==
PROVIDERS: PCP Internal Medicine; Visit Provider Internal Medicine
DX: I10 Essential (primary) hypertension (principal); E78.5 Hyperlipidemia, unspecified; R73.03 Prediabetes
CPT/HCPCS: 36415; 80053; 80061; 81001; 82043; 83036; 84443; 85027; 87637